=== PATIENT | female | born 1935 | race Caucasian/White ===

== ENCOUNTER 2020-08-08 06:36 | Inpatient (IN) | payer MEDICARE, OTHER ==
[~2020-08-08] VITALS: Ht 170.2 cm; Wt 63.5 kg
[2020-08-08 07:18] VITALS: BP 125/61
[2020-08-08 07:24] LABS: BASOPHILS # (AUTO) 0.1 /CMM (0.0-0.2); BASOPHILS % (AUTO) 1.2 % (0.0-2.0); EOSINOPHILS % (AUTO) 7.5 % (0.0-6.0); HEMATOCRIT 45 % (33-45); HEMOGLOBIN 14.6 g/dL (11.5-14.8); LYMPHOCYTES # (AUTO) 1.4 /CMM (0.8-4.8); LYMPHOCYTES % (AUTO) 25.4 % (20.0-44.0); MEAN CORPUSCULAR HGB CONC 33 g/dl (31.0-36.0); MEAN CORPUSCULAR VOLUME 88 fL (82-100); MONOCYTES # (AUTO) 0.4 /CMM (0.1-1.30); NEUTROPHILS # (AUTO) 3.2 /CMM (1.8-8.9); NEUTROPHILS % (AUTO) 58.9 % (43.0-81.0); PLATELET COUNT (AUTO) 237 /CMM (150-450); RED BLOOD CELL COUNT(AUTO) 5.07 MIL/uL (4.0-5.2); WHITE BLOOD COUNT (AUTO) 5.4 K/uL (4.3-11.0)
[2020-08-08 07:34] LABS: CALCIUM, SERUM 10.7 mg/dL (8.5-10.1); CARBON DIOXIDE 24 mmol/L (21-32); CHLORIDE 103 mmol/L (98-107); CREATININE 1.4 mg/dL (0.6-1.3); GLUCOSE 104 mg/dL (74-106); POTASSIUM 4.6 mmol/L (3.5-5.1); SODIUM SERUM 140 mmol/L (136-145); UREA NITROGEN, BLOOD 53 mg/dL (7-18)
[2020-08-08 07:38] LABS: ALANINE AMINOTRANSFERASE 23 U/L (12-78); ALBUMIN 4.1 g/dL (3.4-5.0); ALKALINE PHOSPHATASE 110 U/L (46-116); ASPARTATE AMINOTRANSFERASE 26 U/L (15-37); BILIRUBIN,TOTAL 0.6 mg/dL (0.2-1.0); TOTAL PROTEIN, SERUM 7.5 g/dL (6.4-8.2)
[2020-08-08] MEDS ORDERED: IV NS 0.9% 1,000 ML ONE (08:08)
[2020-08-08] MEDS ORDERED: IODIXANOL 150 ML IV ONE (08:08)
[2020-08-08] MEDS ORDERED: IV SET PRIMARY PUMP SET 1 EA INFUS.SET MC ONE (08:08)
[2020-08-08] MEDS ORDERED: LIDOCAINE HCL/MPF 1% 30 ML VIAL IJ ONE (08:09)
[2020-08-08] MEDS ORDERED: NITROGLYCERIN ICAR 1,000 MCG/10 ML VIAL ICAR ONE (08:09)
[2020-08-08] MEDS ORDERED: FENTANYL PF 100MCG/2ML AMPUL ONE (08:53)
--- NOTE | 2020-08-08 10:00 | NUR ---
RECEIVED PATIENT FROM SNAP SHEARER. RECEIVED REPORT FROM MARY KAY FLORES. PATIENT IN NO ACUTE DISTRESS, ROOM AIR. ON FORENSIC ARTIST, NSR NOTED. PATIENT BLOOD PRESSURE 117/82. TR BAND PLACED AT 0908. WILL BEGIN TO REMOVE AIR AT 1108. PATIENT SAFETY MEASURES MAINTAINED. CALL LIGHT WITHIN REACH. WILL CONTINUE TO MONITOR. PATIENT IN ROOM.
--- NOTE | 2020-08-08 11:10 | NUR ---
PATIENT TR BAND INTACT. NO BLEEDING. PATIENT SBP 124. RELEASED 3ML OF AIR FROM TR BAND SLOWLY. NO BLEEDING, STILL INTACT. WILL CONTINUE TO MONITOR
--- NOTE | 2020-08-08 13:15 | NUR ---
EVERY 20MINS, RELEASED 3ML AIR FROM TR BAND UNTIL DEFLATED. NO BLEEDING NOTED, STILL INTACT, AND PATIENT SBP FROM 110S-120S THROUGHOUT.
[2020-08-08] MEDS ORDERED: CARV6.252 PO (14:15)
[2020-08-08] MEDS ORDERED: INDO75CA3 PO (14:15)
[2020-08-08] MEDS ORDERED: LOSA25TA27 PO (14:15)
[2020-08-08] MEDS ORDERED: PANT40TA49 PO (14:15)
[2020-08-08] MEDS ORDERED: AMIT50TA3 PO (14:15)
[2020-08-08] MEDS ORDERED: ASPI-1420 PO (14:15)
[2020-08-08] MEDS ORDERED: FURO40TA5 PO (14:15)
[2020-08-08] MEDS ORDERED: CITA20TA16 PO (14:15)
[2020-08-08] MEDS ORDERED: ATOR40TA PO (14:15)
--- NOTE | 2020-08-08 14:50 | NUR ---
CALLED NURSING HOUSEKEEPER AND LAUNDRY ASSISTANT ABOUT DISCHARGE. IN PROCESS
--- NOTE | 2020-08-08 15:58 | NUR ---
PATIENT DISCHARGED IN STABLE CONDITION. TR BAND REMOVED, DRESSING APPLIED, NO BLEEDING. PATIENT BELONGINGS GIVEN. PATIENT DISCHARGE PACKET/INSTRUCTIONS GIVEN. PATIENT. IV ACCESS REMOVED. CAR SEAT COVERER REMOVED. PATIENT ESCORTED OUT ON WHEELCHAIR TO CAR
== END 2020-08-08 16:32 | disposition home or self-care (01) | DRG 287 ==
LOC: CATHLAB 06:36 → MEDSG1 10:05
PROVIDERS: ADMIT Internal Medicine; ATTEND Internal Medicine
PROC: 4A023N7 Measurement of Cardiac Sampling and Pressure, Left Heart, Percutaneous Approach (ICD-10-PCS; principal; 2020-08-08)
PROC: B211YZZ Fluoroscopy of Multiple Coronary Arteries using Other Contrast (ICD-10-PCS; 2020-08-08)
DX: I42.9 Cardiomyopathy, unspecified (principal); N18.9 Chronic kidney disease, unspecified; Z20.822 Contact with and (suspected) exposure to COVID-19
CPT/HCPCS: 36415; 80053-TC; 85025-TC; 85610-TC; 85730-TC; C9803; G0378; G0500; J1644; J3010; J3490; Q9967